=== PATIENT | female | born 1970 | race African-American/Black ===

== ENCOUNTER 2021-08-09 06:00 | Inpatient (IN) ==
--- NOTE | 2021-07-25 13:57 | PAT Medication Instructions ---
Medication Instructions Date of Service July 25, 2021 Home Medications loratadine 10 mg tablet (Claritin) 10 mg PO DAILY PRN DO NOT take the morning of surgery loratadine 10 mg tablet (Claritin) 10 mg PO DAILY PRN Other Notes NOTHING TO EAT OR DRINK AFTER MIDNIGHT. If you have any questions please call us at [phone] or [phone] or [phone] or [phone]
--- NOTE | 2021-07-26 14:14 | Anesthesiology Consultation ---
Date of Service July 26, 2021 Assessment & Plan (1) Encounter for pre-operative examination: - surgeon H&P 07/26/2021 [place]: "...Presently being scheduled for a total abdominal hysterectomy with removal of fibroids, preservation of both ovaries and cervix..." - check urine am DOS. - COVID screening: Per assessment on 07/26/2021: Travel screen negative, no known COVID-19 positive contacts or current COVID-19 related symptoms in past 2 weeks. Patient vaccinated. Surgeon arranging preop COVID testing, scheduled 08/05/2021. Awaiting results. Chart Review Chart Review: Acceptable Risk for Surgery and Patient seen in Pre Admission Testing Teaching & Discussion Pre-Anesthesia Teaching/Discussion Notes: Instructed NPO after midnight before surgery, except medications with 15 cc of water. Medication instructions provided according to the PAT guidelines. History Surgery Operation Date: 08/09/21 07:30 Proposed Procedures p Total Abdominal Hysterectomy Preservation of Cervix and Both Ovaries if Possible - Lobo Gomez MD Pt states that per her discussion with surgeon's office, surgery is total abdominal hysterectomy with preservation of ovaries and cervix. She states this was previously discussed with surgeon's office and updated consent signed at their office. I advised their office will also need to change OR booking, not yet updated. I advised that we can proceed with PAT appointment and testing today awaiting surgery change to booking or re-schedule to another day after booking sheet is updated. She expressed plan to keep appointment as scheduled today with update once surgeon's office has made change. Visit conducted 07/26/2021. Yvette at Dr. Gomez's office advised updated consent has been signed by patient and that she will change OR booking this week. Booking updated to preservation of cervix and both ovaries if possible, per H&P and surgeon's office this was discussed with patient 07/26/2021. Height/Weight Height: 5 ft 6 in Weight: 72.9 kg Allergies Allergy/AdvReac Type Severity Reaction Status Date / Time latex AdvReac Mild MILD ITCHY Verified 07/25/21 11:17 WITH GLOVES Medications Home Medications Medication Instructions Recorded Confirmed Last Taken loratadine 10 mg tablet (Claritin) 10 mg PO DAILY PRN 10/24/19 07/25/21 Unknown Past Medical History Medical History (Updated 07/26/21 @ 14:28 by Brittaney Singh PA-C) No significant past medical history Seasonal allergies Patient denies h/o stroke, seizures, heart attack, heart failure, DM, HTN, blood clots or blood transfusions. Exercise / Class Metabolic Activity II 4-5 Yardwork/Stairs/Walk up hill (denies CP or SOB with 1 FOS) Past Family History Family History Other No known health problems Past Surgical History Surgical History History of section Past Anesthesia History No Hx of Anesthesia Complications and No Family Hx of Anesthesia Complications History of PONV No Hx of PONV and Hx of Motion Sickness (if reading in a moving vehicle) Social History Smoking Status: Never smoker Do You Dip or Chew Tobacco: No Hx Alcohol Use: Yes Alcohol type: wine alcohol intake frequency: a few times a month Hx Substance Use: No Review of Systems Occasional reflux with certain foods. Patient denies chest pain, shortness of breath, dyspnea on exertion, snoring, witnessed apneas, fever, chills, cough, wheezing, or palpitations. Physical Exam Vital Signs Vitals BP 123/82 P 62 TEMP 98.7 SP02 100% on RA RESP 17 Physical Full cervical extension range of motion without pain Full TMJ range of motion TMD 3.5 finger breaths Mallampati Score 2 Dentition: intact, bridge left upper side and right front-side and right upper missing side teeth; denies chipped or loose teeth, caps/crowns or implants Lungs: normal respiratory effort. Clear throughout to auscultation, no adventitious breath sounds Cardiac: regular rate and rhythm, no murmurs noted Carotid arteries: negative bruit bilat Extremities: no distal extremity edema Lab Results Anesthesia Preop Results Results Anesthesia Widget: WBC 3.99 K/uL (4.8-10.8) L 07/26/21 Hgb 11.2 g/dL (12.0-16.0) L 07/26/21 Hct 34.5 % (37-47) L 07/26/21 Plt 216 K/uL (130-400) 07/26/21 Na 137 mmol/L (136-145) 07/26/21 K 3.6 mmol/L (3.5-5.1) 07/26/21 Cl 107 mmol/L (98-107) 07/26/21 CO2 26 mmol/L (21-32) 07/26/21 BUN 10 mg/dl (6-23) 07/26/21 Creat 0.71 mg/dl (0.6-1.2) 07/26/21 Glucose Level 84 mg/dl (70-99(Fasting)) 07/26/21 PT 10.8 Seconds (9.0-12.0) 07/26/21 PTT 26.8 Seconds (21.0-31.0) 07/26/21 INR 1.1 (0.9-1.1) 07/26/21 Blood Type A Positive 07/26/21 Antibody Screen NEGATIVE 07/26/21 Testing Electrocardiogram Date: 07/26/21 Sinus bradycardia, rate 59 bpm.
[~2021-08-09 06:00] MED LIST: LR 15ML/HR IV SCH
[2021-08-09] MEDS ORDERED: MIDAZOLAM HCL 1 MG/ML 2ML VIAL ONE (06:52)
[2021-08-09] MEDS ORDERED: fentaNYL citrate 100 MCG/2 ML VIAL ONE (06:52)
[2021-08-09] MEDS ORDERED: PROPOFOL IV EMULSION 10 MG/ML 20 ML VIAL IV ONE (06:53)
[2021-08-09] MEDS ORDERED: LIDOCAINE 2% 2 ML VIAL/AMP(20MG/ML) INFIL ONE (06:53)
[2021-08-09] MEDS ORDERED: ROCURONIUM BROMIDE 10 MG/ML 5 ML VIAL IV ONE (06:53)
[2021-08-09] MEDS ORDERED: HEPARIN (PORCINE) 1000 UNIT/ML 10 ML (CATH LAB USE ONLY) ONE (07:00)
[2021-08-09] MEDS ORDERED: cefOXitin 2,000 MG in DEXTROSE 5% 50 ML IV STA (07:09)
[2021-08-09] MEDS ORDERED: MoRPHine SULFATE PF 1 MG/ML 10 ML AMP/VIAL ONE (07:22)
[2021-08-09] MEDS ORDERED: ACETAMINOPHEN 1000 MG/100 ML IV IV ONE (07:24)
[2021-08-09] MEDS ORDERED: SCOPOLAMINE 1 MG TDSY TD ONE (07:24)
[2021-08-09] MEDS ORDERED: FAMOTIDINE/PF 20 MG/2 ML VIAL IV ONE (07:25)
--- NOTE | 2021-08-09 07:25 | History & Physical Bridge Note ---
Date of Service August 09, 2021 History & Physical Bridge Note I have examined the patient, reviewed the History & Physical and in the interval since the performance of the History & Physical I have noted the following changes of clinical significance: no changes noted
[2021-08-09] MEDS ORDERED: ePHEDrine sulfate 50 MG/ML AMP IV PRN (07:49)
[2021-08-09] MEDS ORDERED: KETOROLAC 30 MG/ML VIAL IV PRN (07:49)
[2021-08-09] MEDS ORDERED: NALBUPHINE HCL INJ 10 MG/ML AMP IV PRN (07:49)
[2021-08-09] MEDS ORDERED: MoRPHine SULFATE PF 1 MG/ML 10 ML AMP/VIAL INT SPINAL ONE (07:49)
[2021-08-09] MEDS ORDERED: NALOXONE HCL 0.4 MG/1 ML VIAL/CARP IV PRN (07:49)
[2021-08-09] MEDS ORDERED: LACTATED RINGER'S 500 ML IV PRN (07:49)
[2021-08-09] MEDS ORDERED: NALOXONE HCL 0.08 MG in SYRINGE 1.8 ML IV PRN (07:49)
[2021-08-09] MEDS ORDERED: diphenhydrAMINE 50 MG/ML VIAL IV PRN (07:49)
[2021-08-09] MEDS ORDERED: NALOXONE HCL 1 MG in SODIUM CHLORIDE 0.9% 1000ML 1,000 ML IV PRN (07:49)
[2021-08-09] MEDS ORDERED: PROMETHAZINE HCL 12.5 MG in SODIUM CHLORIDE 0.9% 50 ML IV PRN (07:49)
[2021-08-09] MEDS ORDERED: ONDANSETRON INJ 2 MG/ML 2 ML VIAL IV PRN (07:49)
[2021-08-09] MEDS ORDERED: MEPERIDINE HCL 25 MG/ML CARP/VIAL IV PRN (07:49)
[2021-08-09] MEDS ORDERED: SODIUM CHLORIDE 0.9% 1000ML 1,000 ML IV SCH (08:00)
[2021-08-09] MEDS ORDERED: NO NARCOTICS OR SEDATIVES SCH (08:00)
[2021-08-09] MEDS ORDERED: GLYCOPYRROLATE 0.2 MG/ML VIAL ONE (09:38)
[2021-08-09] MEDS ORDERED: NEOSTIGMINE METHYLSULFATE 1 MG/ML 10ML VIAL ONE (09:38)
[2021-08-09] MEDS ORDERED: DEXAMETHASONE SOD INJ 4 MG/ML VIAL ONE (09:38)
[2021-08-09] MEDS ORDERED: ePHEDrine sulfate 50 MG/ML SYR ONE (09:38)
[2021-08-09] MEDS ORDERED: ONDANSETRON INJ 2 MG/ML 2 ML VIAL ONE (09:38)
--- NOTE | 2021-08-09 10:08 | Post Operative Brief Note ---
Immediate Post Op Note v1 Date of Surgery August 09, 2021 Pre & Post Diagnosis Operation Date: 08/09/21 07:30 Pre-Op Diagnosis: Large Uterine Fibroids Post-Op Diagnosis: Large Uterine Fibroids I identified the patient and participated in the time-out.: Yes Procedure Operation Date: 08/09/21 07:30 Actual Procedures p Total Abdominal Hysterectomy, Preservation of Cervix and Both Ovaries (Not Applicable) - Lobo Gomez MD Surgeon Lobo Gomez MD Contamination Consultant Dr Farooq Estimated Blood Loss 50 Findings Consistent with Post-Op Diagnosis adhesions large uterus multiple fibroids Drains Hanson Catheter and Sandhya Drain Anesthesia Type General Complications none
--- NOTE | 2021-08-09 10:46 | Operative Report (OR) ---
DATE OF PROCEDURE: 08/09/2021. PROCEDURE: Total abdominal hysterectomy, lysis of adhesions, preservation of both ovaries and portio n of the cervix. PREOPERATIVE DIAGNOSIS: Large symptomatic fibroid uterus. POSTOPERATIVE DIAGNOSES: Large symptomatic fibroid uterus. Pelvic adhesions from previous section. SURGEON: Holly Gomez MD. EARLY CHILDHOOD: Darnell Farooq MD. ESTIMATED BLOOD LOSS: 50 mL ANESTHESIA: General with spinal narcotics. OPERATIVE FINDING AND PROCEDURE: The patient was brought to the OR table, correctly identified by mckay magana and conversation. Spinal narcotics were administered. Then, she was repositioned on the table . General anesthesia was administered. The vagina was painted with Betadine solution and then a Fol ey catheter was inserted aseptically in the bladder, connected to gravity drainage. Lower abdomen up to the umbilicus was painted with an alcohol based sterilizing solution, and was allowed to dry for 3 minutes and then the abdomen was draped in the usual sterile fashion. A midline incision was made, carried down to the anterior fascia by sharp dissection. Hemostasis was secured by electrocauteriza tion. Fascia was incised in the midline down to the pelvic brim and up towards the umbilicus. The peritone um was carefully raised and entered. Then, it was extended with the scissors. I put my hand into th e pelvis. There was a large uterus with multiple fibroids, approximately equivalent to a 16-week ges tational size uterus. We used the 3 laparotomy packs to pack off the bowel and then used an O'Malcolm- O'Bean to open up the incision and separate the two abdominal stone. We then brought out the fib roid uterus through the O'Malcolm-O'Bean, used a double tooth tenaculum. We carefully identified the round ligaments on either side. They were ligated by suturing and proximally with a silk tie. T hen, suturing them distally both with a silk tie and then a transfixion suture with a chromic gut. W e then dissected the bladder down. There was a fair amount of adhesions from a previous sec tion. They were all carefully taken down close to the uterus itself. We then started on the left side, we identified the tube, the ovary, which was small, close to the ut erus. There were some adhesions, which we took down to free it up with having cut the round ligament on the left side, we were able to make a window through the broad ligament on the left side and then clamped the uterus close to the fundus and then clamped it distally, cut between the 2 clamps and th en tie off the adnexa, which consisted of the ovarian ligament and tube. We did that first with a tr ansfixion suture chromic catgut and then we used a second throw with a silk suture and tagged it, mov ed it out of the operative field. The same procedure was performed on the right. The right ovary wa s more distal from the fundus of the uterus and we were able once again to get a window into the broa d ligament having cut the round on that side and then clamped close to the fundus, which clamped the tube and ovarian ligament and distally, then cut the adnexa free. I then used a transfixion suture to tie it and tag it and then a silk tie to further tie the adnexa. We then carefully dissected the bladder off the lower uterine segment, exposed where the cervix join ed the fundus on either side. We doubly clamped with a curved Lesia, cut with a knife and then doub ly ligated with a suture of chromic catgut. We then took one portion of the upper cervix by using a curved Lesia, took about a centimeter to 1.5 cm bite sliding off the cervix on either side cutting t he upper cervix with a knife and then using a suture of chromic catgut for hemostasis. We then used an electrocautery to excise the surgical specimen consisting of multiple fibroid uterus, small portio n of the upper cervix and this was all sent for pathological evaluation. I then used the continuous interlocking suture of chromic catgut to sew the cervix and create good he mostasis in a locking fashion. Also, we sewed the portion of the cardinal ligament back on to the ce rvix on either side. Hemostasis was excellent. We brought the round ligaments down on either side f or support, sewed them into the attachment to the cervix. I then did a [id number] suture of chr omic catgut on the right and the left side, approximating the cervix front to back and I used a Penro se drain with a safety pin in the cervical canal, which I placed a safety pin into the vagina and the n the end of the Sandhya into the cul-de-sac. After supporting the portion of the cervix with the ro und ligaments on each side, I reperitonealized the peritoneum attaching the ovaries up on the lateral pelvic wall on each side, and covering up all the raw edges. I went from the right down to the midd le of the cervix and from the left down to the middle of the cervix and then tied the two chromic cat gut sutures together. We made sure the Burton drain was mobile. It was in the cul-de-sac. We washed everything out. Hemostasis was excellent. Estimated blood loss at this time was 50 mL bef ore irrigation. Packs were removed and we did a careful anatomical approximation of the anterior abdo yolande wall. Peritoneum was closed with continuous interlocking suture of chromic catgut. The fascia was approximated with PDS, one anchored at the bottom of the defect and run up to the middle and the n the other anchored at the top of the defect, run to the middle of the incision and then the two end s were tied, below the fascia with about 8 knots. Following this, hemostasis was excellent. I then used interrupted plain sutures to approximate the subcutaneous and then I used tereso to approximate the skin edges. Hemostasis was good. Urine was clear. The patient was stable and patient tolerate d the procedure well. Job ID: [id number]
[2021-08-09] MEDS ORDERED: SODIUM CHLORIDE 0.9% 50 ML BAG ONE (11:01)
[2021-08-09] MEDS ORDERED: PROMETHAZINE HCL INJ 25 MG/ML 1 ML VIAL ONE (11:02)
[2021-08-09] MEDS: D5W AND LACTATED RINGERS 1,000 ML IV SCH ×2 (12:11→20:19)
[2021-08-10] MEDS ORDERED: DC INTRASPINAL MORPHINE SCH (01:50)
[2021-08-10] MEDS ORDERED: oxyCODONE/ACETAMINOPHEN 5mg/325mg TAB PO PRN (01:50)
[2021-08-10] MEDS ORDERED: KETOROLAC 30 MG/ML VIAL IV PRN (01:50)
[2021-08-10] MEDS ORDERED: MEPERIDINE HCL 50 MG/ML CARP IV PRN (01:50)
[2021-08-10] MEDS: IBUPROFEN 600 MG TAB PO PRN ×3 (05:37→23:01)
[2021-08-10 06:47] LABS: Basophils # (auto) 0.02 K/uL (0-0.2); Basophils % (auto) 0.2 %; Eosinophils # (auto) 0.03 K/uL (0-0.5); Eosinophils % (auto) 0.3 %; Hematocrit (blood only) 33.2 % (37-47); Hemoglobin 10.4 g/dL (12.0-16.0); Immature Granulocytes # (auto) 0.04 K/uL (0.00-0.02); Immature Granulocytes % (auto) 0.4 %; Lymphocytes # (auto) 2.25 K/uL (1.2-3.4); Lymphocytes % (auto) 22.1 %; Mean Corpuscular Hgb Conc 31.3 g/dL (32-36); Mean Corpuscular Volume 86.2 fL (80-100); Mean Platelet Volume 11.5 fL (7.4-10.4); Monocytes # (auto) 0.69 K/uL (0.11-0.59); Monocytes % (auto) 6.8 %; Neutrophils # (auto) 7.15 K/uL (1.4-6.5); Neutrophils % (auto) 70.2 %; Platelet Count 161 K/uL (130-400); RDW Coefficient of Variation 17.4 % (11.5-14.5); Red Blood Count 3.85 M/uL (4.2-5.4); White Blood Count 10.18 K/uL (4.8-10.8)
--- NOTE | 2021-08-10 09:30 | Obstetrical Progress Note ---
Date of Service August 10, 2021 Assessment & Plan Admission and Anticipated Discharge Date Admission Date: August 09, 2021 Subjective abdomen soft and non tender no calf tenderness afebrile bowel sounds present hypoactive vaginal bleeding scant hgb 10.4 Results & Data ([facility]) Vital Signs (Past 12 Hours) Vital Signs Temp Pulse Resp BP Pulse Ox 08/10/21 04:30 36.8 C 75 16 100/62 99 08/10/21 01:45 18 100 08/10/21 01:30 36.9 C 61 18 99/62 L 100 08/10/21 01:10 16 98 08/10/21 00:00 18 97 08/09/21 23:00 18 99 08/09/21 22:45 18 97
[2021-08-11 06:48] LABS: Basophils # (auto) 0.03 K/uL (0-0.2); Basophils % (auto) 0.5 %; Eosinophils # (auto) 0.16 K/uL (0-0.5); Eosinophils % (auto) 2.8 %; Hematocrit (blood only) 29.3 % (37-47); Hemoglobin 9.3 g/dL (12.0-16.0); Lymphocytes # (auto) 1.56 K/uL (1.2-3.4); Lymphocytes % (auto) 27.8 %; Mean Corpuscular Hemoglobin 27.4 pg (25-34); Mean Corpuscular Hgb Conc 31.7 g/dL (32-36); Mean Corpuscular Volume 86.2 fL (80-100); Mean Platelet Volume 11.6 fL (7.4-10.4); Monocytes % (auto) 7.1 %; Neutrophils # (auto) 3.47 K/uL (1.4-6.5); Neutrophils % (auto) 61.8 %; Platelet Count 160 K/uL (130-400); RDW Coefficient of Variation 17.1 % (11.5-14.5); RDW Standard Deviation 54.4 fL (36.4-46.3); White Blood Count 5.62 K/uL (4.8-10.8)
[2021-08-11] MEDS: IBUPROFEN 600 MG TAB PO PRN (08:21)
--- NOTE | 2021-08-11 09:58 | Obstetrical Progress Note ---
Date of Service August 11, 2021 Assessment & Plan Admission and Anticipated Discharge Date Admission Date: August 09, 2021 Subjective abdomen soft and non tender bowel sounds present and normal incision is clean and dry no0 calf tenderness ambulating well alec drain removed vaginal bleeding scant hgb 9.3 Results & Data ([facility]) Vital Signs (Past 12 Hours) Vital Signs Temp Pulse Resp BP Pulse Ox 08/11/21 07:20 36.9 C 55 L 16 131/79 08/11/21 03:00 37.2 C 64 16 115/76 99 08/10/21 23:00 37.3 C 70 16 115/65 99
--- NOTE | 2021-08-11 11:15 | Discharge Summary (DS) ---
DATE OF ADMISSION: 08/09/2021 DATE OF DISCHARGE: 08/11/2021 PROCEDURE: Total abdominal hysterectomy. HOSPITAL COURSE: Mrs. Mensah is a 51-year-old 1, para 1. She had a previous and sh e had multiple symptoms due to a large fibroid uterus. These symptoms included irregular heavy bleed ing, pelvic pain, pain radiating down her legs and pelvic pressure. Prior to admission, she was diagn osed with a uterine size consistent with a 16-week gestational size , if not larger. On the day of admission, she was given prophylactic antibiotics. She was taken to the OR where a total abd ominal hysterectomy was performed through a midline incision. Ovaries were preserved at the patient' s request and a portion of the cervix was preserved at the patient's request. The surgery went well. Estimated blood loss at the time of surgery was about 50 mL. Postoperatively, she did well. She remained afebrile her entire postoperative course. She always peralta d bowel sounds; however, it took about a day or so that she passed gas. At the time of discharge, her incision was clean and dry. She had no calf tenderness. She was ambulating well without any limp o r foot drop. The Sandhya drain was removed from the vaginal cuff on the second postoperative day. H er pain was controlled with nonnarcotic pain relievers and she was given the usual postoperative inst ructions and told to return to the office in about a week to 10 days for removal of the tereso. Job ID: [id number]
== END 2021-08-11 13:10 | disposition home or self-care (01) | DRG 743 ==
LOC: ASU 06:00 → 4S2 10:18